=== PATIENT | female | born 1930 | race Caucasian/White ===

== ENCOUNTER 2018-11-16 06:07 | Inpatient (IN) ==
[2018-11-16 07:03] LABS: Basophils # (Auto) 0 K/mcL (0.0-0.3); Basophils % (Auto) 0.4 % (0.0-2.0); Eosinophils # (Auto) 0.1 K/mcL (0.0-0.7); Eosinophils % (Auto) 0.7 % (0.0-7.0); Granulocytes % (Auto) 68.4 % (38.0-78.0); Hematocrit 35.9 % (36.0-48.0); Hemoglobin 11.6 g/dL (12.0-15.0); Lymphocytes # (Auto) 1.6 K/mcL (1.5-4.8); Lymphocytes % (Auto) 18.3 % (15.5-49.0); Mean Cell Volume 93.9 fL (80.0-100.0); Mean Corpuscular HGB Conc 32.5 g/dL (31.0-36.0); Mean Platelet Volume 7.3 fL (7.4-10.4); Monocytes # (Auto) 1.1 K/mcL (0.1-0.9); Monocytes % (Auto) 12.2 % (1.0-12.0); Platelet Count 265 K/mcL (140-440); RBC 3.82 M/mcL (4.00-5.20); Red Cell Distribution Width 13.8 % (11.5-14.5)
[2018-11-16 07:22] LABS: Blood Urea Nitrogen 35 mg/dl (8-23); Calcium 9.2 mg/dl (8.6-10.4); Carbon Dioxide 27 mmol/L (22-30); Chloride 99 mmol/L (96-108); Glomerular Filtration Rate 37; Glucose 105 mg/dL (70-105); Sodium 137 mmol/L (133-145)
[2018-11-16] MEDS ORDERED: ceFAZolin 2 GM in DEXTROSE 5% IN WATER 50 ML IV SCH (08:00)
[2018-11-16] MEDS ORDERED: MIDAZOLAM 5 MG/5 ML VIAL IV ONE (09:10)
[2018-11-16] MEDS ORDERED: ONDANSETRON 4 MG/2 ML VIAL IV ONE (09:10)
[2018-11-16] MEDS ORDERED: LIDOCAINE HCL/PF 100 MG/5 ML SYRINGE IV ONE (09:10)
[2018-11-16] MEDS ORDERED: DEXAMETHASONE 10 MG/ML VIAL IV ONE (09:10)
[2018-11-16] MEDS ORDERED: PROPOFOL 200 MG/20 ML VIAL IV ONE (09:10)
[2018-11-16 09:43] LABS: Appearance,Urine CLEAR; Bacteria,Urine FEW /hpf (0); Bilirubin,Urine NEG (NEG); Color,Urine YELLOW; Culture Indicated,Urine YES; Glucose,Urine (UA) NEGATIVE (NEG); Ketones,Urine NEG (NEG); Leukocyte Esterase,Urine 25 /uL (NEG); Nitrate,Urine NEG (NEG); Protein,Urine NEG (NEG); Specific Gravity,Urine 1.013 (1.000-1.035); Urine Blood 0.2 mg/dL (<0.03); Urine Granular Cast 1 /lpf (0); Urine RBC 1 /hpf (0-1); Urine Squamous Epithelial Cell 2 /hpf (0-4); Urine Transitional Epi Cells 2 /hpf (0-2); Urine WBC 1 /hpf (0-4)
[2018-11-16] MEDS ORDERED: IPRATROPIUM/ALBUTEROL 3 ML AMPUL.NEB NEB PRN (09:51)
[2018-11-16] MEDS ORDERED: FLUMAZENIL 0.1 MG/ML ML IV PRN (09:51)
[2018-11-16] MEDS ORDERED: LACTATED RINGERS 250 ML IV PRN (09:51)
[2018-11-16] MEDS ORDERED: MEPERIDINE 25 MG/ML SYRINGE IV PRN (09:51)
[2018-11-16] MEDS ORDERED: ONDANSETRON 4 MG/2 ML VIAL IV PRN ×2 (09:51→10:04)
[2018-11-16] MEDS ORDERED: BENZOCAINE/MENTHOL 1 LOZENGE PO PRN ×2 (09:51→10:04)
[2018-11-16] MEDS ORDERED: PROMETHAZINE 25 MG/ML VIAL IV PRN (09:51)
[2018-11-16] MEDS ORDERED: diphenhydrAMINE 50 MG/ML VIAL IV PRN (09:51)
[2018-11-16] MEDS ORDERED: NALOXONE HCL 0.4 MG/ML VIAL IV PRN (09:51)
[2018-11-16] MEDS ORDERED: LACTATED RINGERS 1,000 ML IV SCH (10:00)
[2018-11-16] MEDS ORDERED: BISACODYL 10 MG SUPP.RECT PR PRN (10:04)
[2018-11-16] MEDS ORDERED: POLYETHYLENE GLYCOL 3350 17 GM PACKET PO PRN (10:04)
[2018-11-16] MEDS ORDERED: TRANEXAMIC ACID 1,000 MG/10 ML VIAL IV ONE (10:04)
[2018-11-16] MEDS ORDERED: TEMAZEPAM 15 MG CAPSULE PO PRN ×2 (10:04→10:07)
[2018-11-16] MEDS ORDERED: MAGNESIUM HYDROXIDE 30 ML ORAL.SUSP PO PRN (10:04)
[2018-11-16] MEDS ORDERED: HYDROmorphone 2 MG/ML VIAL IV PRN (10:04)
[2018-11-16] MEDS ORDERED: FLEETS ADULT ENEMA PR PRN (10:04)
[2018-11-16] MEDS ORDERED: ACETAMINOPHEN 325 MG TABLET PO PRN (10:04)
--- NOTE | 2018-11-16 10:04 | Brief Operative Note ---
Date of procedure: 11/16/18 Pre-op diagnosis: Right femur fracture Post-op diagnosis: same Procedure: Right femur fracture orif with IM nailing Grafts/Implants: Yes Anesthesia: GETA Complications: none Surgeon: Albino Sutherland Administration Intern: Rickie Pop Estimated blood loss (cc): 150 Specimens Removed/Pathology: none sent Condition: stable Disposition: PACU
[2018-11-16] MEDS ORDERED: PROPYLENE GLYCOL OU PRN (10:07)
[2018-11-16] MEDS: fentaNYL 100 MCG/2 ML VIAL IV PRN ×4 (10:22→10:28)
--- NOTE | 2018-11-16 11:01 | Operative Note ---
DATE OF OPERATION: 11/16/2018 PREOPERATIVE DIAGNOSIS: Right femur fracture, midshaft, incomplete. POSTOPERATIVE DIAGNOSIS: Right femur fracture, midshaft, incomplete. PROCEDURE: Right midshaft femur fracture IM nailing with a Gamma nail. SURGEON: Albino Sutherland M.D. DRIVER SERVICE TECHNICIAN: Rickie Pop PA-C. The PA's assistance was required for the safe and efficient completion of the entire case. This provider's expertise and technical skill were required throughout the case. The PA assisted with preoperative coordination, intraoperative retraction, wound closure, dressing and splint application, as well as postoperative documentation and care coordination. ANESTHESIA: General LMA anesthesia. COMPLICATIONS: None. DESCRIPTION OF PROCEDURE: The patient was brought to the operating room and put to sleep with general LMA anesthesia. Once asleep, the patient had the right leg sterilely prepped and draped in the usual sterile fashion and placed on the [place] table. We then took images, confirmed the position of the fracture, and then made an incision after the time out confirmed the right operative site. Tranexamic acid and preoperative antibiotics had been given. We made an incision posteriorly on the greater trochanter. We placed a central pin and then reamed up proximally. We placed a Gamma nail after reaming up for the size 13. A 10 mm long stem, 36 cm in length we locked proximally with a Gamma nail with an 85 mm intertrochanteric dynamic compression screw which was locked into place. We then distally locked two screws which measured 45 and 50. This gave excellent fixation. The patient tolerated this well without complication. We then closed the wound with 2-0 Vicryl and yevgeniy. Sterile bandage was applied. Images were saved. RBH:maurisio Job ID: [id number] Doc ID: [id number] Albino Sutherland MD
--- NOTE | 2018-11-16 11:34 | XRay Report ---
CLINICAL INFORMATION: Postop intramedullary nailing right femur COMPARISON: Preoperative films and additional history unavailable FINDINGS: A long gamma nail extends through the intramedullary portion of the entire femoral diaphysis and is supported by two screws in the metadiaphyseal region. There is a transverse incomplete unified fracture through the lateral cortex of the mid femoral diaphysis possibly a stress fracture. No other osseous abnormalities. Moderate degenerative change seen in the right hip, patellofemoral and tibiofemoral joints with chondrocalcinosis in the hip and menisci of the tibiofemoral joint IMPRESSION: Long gamma nail transfixing an apparent nondisplaced healing stress fracture through the lateral cortex of the mid femoral diaphysis. All relations are anatomic Moderate degenerative change right hip, patellofemoral and tibiofemoral joints with chondrocalcinosis in the menisci and the femoral head cartilage. Interpreted and Authenticated by: Ravi Hebert 11/16/18
[2018-11-16] MEDS: 0.45 % SODIUM CHLORIDE 1,000 ML IV SCH (14:31)
[2018-11-16] MEDS: HYDROCODONE/APAP 7.5/325MG TABLET PO PRN ×2 (14:32→22:00)
[2018-11-16] MEDS: VITAMIN D3 1,000 UNIT TABLET PO SCH (14:33)
[2018-11-16] MEDS: 0.9 % SODIUM CHLORIDE 10 ML SYRINGE IV SCH (14:33)
[2018-11-16] MEDS: CALCIUM (OYSTER SHELL) 500 MG TABLET PO SCH ×3 (14:33→22:02)
[2018-11-16] MEDS: ceFAZolin 1 GM VIAL IV SCH (18:08)
[2018-11-16] MEDS: SOTALOL 80 MG TABLET PO SCH (18:09)
[2018-11-16] MEDS: LOSARTAN 50 MG TABLET PO SCH (18:09)
[2018-11-16] MEDS: buPROPion 75 MG TABLET PO SCH (18:42)
[2018-11-16] MEDS: FLUTICASONE PROPIONATE SPRAY.NAS NS SCH (21:00)
[2018-11-16] MEDS: DOCUSATE SODIUM 100 MG CAPSULE PO SCH (22:01)
[2018-11-16] MEDS: FAMOTIDINE 20 MG TABLET PO SCH (22:02)
[2018-11-16] MEDS: SENNOSIDES 1 TABLET PO SCH (22:02)
[2018-11-16] MEDS: ASPIRIN 325 MG ENTERIC COATED TABLET PO SCH (22:03)
[2018-11-17] MEDS: 0.9 % SODIUM CHLORIDE 10 ML SYRINGE IV SCH ×4 (00:42→21:38)
[2018-11-17] MEDS: ceFAZolin 1 GM VIAL IV SCH (00:44)
[2018-11-17] MEDS: 0.45 % SODIUM CHLORIDE 1,000 ML IV SCH ×2 (01:12→06:49)
[2018-11-17] MEDS: FUROSEMIDE 20 MG TABLET PO SCH (06:04)
[2018-11-17] MEDS: SOTALOL 80 MG TABLET PO SCH ×2 (06:04→18:18)
[2018-11-17] MEDS: LOSARTAN 50 MG TABLET PO SCH ×2 (06:05→18:18)
[2018-11-17] MEDS: HYDROCODONE/APAP 7.5/325MG TABLET PO PRN ×3 (06:40→18:19)
[2018-11-17] MEDS: buPROPion 75 MG TABLET PO SCH ×2 (07:12→18:18)
--- NOTE | 2018-11-17 07:45 | Orthopedic Progress Note ---
Subjective Patient information: Note initiated : 11/17/18 at 7:44 am Service Date, if different from initiated Date: [] Patient: Rosie Almonte 88 y/o F admitted on 11/16/18 for Intramedullary Nailing of Right Femur. Chief Complaint: [Pt is stable this morning on post operative day 1 without any significant concerns or complaints. Patients vital signs have remained stable. Patients dressing is dry and is grossly intact from a neurovascular and motor standpoint. Patients 10 point ROS is otherwise negative. ] Objective Vital signs: Vital Signs Temp Pulse Pulse Resp BP Pulse Ox 11/17/18 04:00 97.7 F 80 96 H 18 110/70 96 11/17/18 00:38 98.5 F 78 20 86/53 96 11/16/18 19:27 99.0 F 70 22 94/57 93 11/16/18 18:00 96 11/16/18 16:00 98.8 F 78 18 94/58 97 11/16/18 14:05 98.5 F 75 18 96/55 92 11/16/18 14:00 95 11/16/18 13:05 72 18 102/60 90 11/16/18 12:35 70 16 108/68 90 11/16/18 12:05 98 11/16/18 11:55 70 16 116/69 94 11/16/18 11:40 71 16 118/73 96 11/16/18 11:25 70 16 114/71 95 11/16/18 11:10 97.4 F 70 16 120/74 98 11/16/18 10:45 97.3 F 74 15 119/62 98 11/16/18 10:35 97.3 F 74 15 129/89 100 11/16/18 10:20 98.2 F 78 11 L 130/91 100 11/16/18 10:15 79 14 138/70 100 11/16/18 10:10 98.4 F 78 11 L 137/70 98 11/16/18 10:05 97 Intake and Output 11/16/18 11/17/18 11/17/18 21:59 05:59 13:59 Intake Total 1060 1450 Output Total 200 700 Balance 860 750 Intake: IV 1050 Sodium Chloride 0.45% 1,000 ml 1000 @ 100 mls/hr IV .Q10H [facility] Rx#: [id number] Oral 1060 400 Output: Void Amount 200 700 Other: Meal Dinner Percent of Meal Consumed 100% Feeding Ability Independent Urine Appearance Clear Urine Color Pale Urine Odor Normal Stool Size Moderate Stool Color Brown Stool Consistency Formed # Voids 1 # Bowel Movements 1 Weight 118 lb Intake & Output: Intake & Output 11/16/18 11/17/18 11/17/18 21:59 05:59 13:59 Intake Total 1060 1450 Output Total 200 700 Balance 860 750 Weight 118 lb Intake: IV 1050 Sodium Chloride 0.45% 1,000 ml 1000 @ 100 mls/hr IV .Q10H [facility] Rx#: [id number] Oral 1060 400 Output: Void Amount 200 700 Other: Meal Dinner Percent of Meal Consumed 100% Feeding Ability Independent Urine Appearance Clear Urine Color Pale Urine Odor Normal Stool Size Moderate Stool Color Brown Stool Consistency Formed # Voids 1 # Bowel Movements 1 Incision: Yes healing Incision clean and dry: Yes Dressing: Yes clean Weight bearing status: full Neurological exam IM: Yes motor sensory intact, Yes neurovascular intact Extremities exam IM: Yes Foot pink and warm, Yes neurovascular intact - Labs CBC & BMP: 11/17/18 04:20 11/16/18 06:28 Labs: Orthopedic Labs 11/16/18 06:28 PT 13.0 INR 1.0 APTT 37 11/17/18 11/16/18 04:20 06:28 Hgb 11.6 L Hct 30.2 L 35.9 L Assessment and Plan (1) Hx of fracture of right hip The patient has been educated regarding dressing care, Physical Therapy recommendations, home exercises, restrictions, and follow up appointments. The patient has had all necessary DME prescribed. The patient has remained relatively stable during their hospital course. Status: Acute
--- NOTE | 2018-11-17 07:48 | Discharge Summary ---
Ortho Discharge - [facility] - Patient Instructions Diet: Regular Diet Activity: activity as tolerated, weight bearing as tolerated Total Hip Protocol: Follow activity instructions as provided by Physical Therapy. Dressing Care: May shower in 3 days, Aquacel Ag - leave on for 5 days - Problem Maintenance (1) Hx of fracture of right hip Status: Acute - Follow Up Plan Follow Up Appointments: Albino Sutherland MD [Physician] - 12/01/18 10:10 am Disposition: Home, Self-Care Prognosis: Good Rehab Potential: Good I certify that the patient requires SNF services: No Overall status at discharge: patient is progressing back to baseline - Orders For Discharge Prescriptions: Aspirin [Ecotrin] 325 mg PO BID #60 tab.ec Docusate Sodium [Colace] 100 mg PO BID #60 cap Hydrocodone/APAP 7.5/325Mg [[place] 7.5-325Mg] 1 - 2 tab PO Q4HP PRN #75 tab PRN Reason: Pain Level 3-6
[2018-11-17] MEDS ORDERED: fentaNYL 25 MCG PATCH TOPICAL ONE (09:00)
[2018-11-17] MEDS ORDERED: IBANDRONATE SODIUM 150 MG PO SCH (09:00)
[2018-11-17] MEDS: CALCIUM (OYSTER SHELL) 500 MG TABLET PO SCH ×4 (09:14→21:36)
[2018-11-17] MEDS: MULTIVIT,THER IRON,CA,FA & MIN 1 TABLET PO SCH (09:14)
[2018-11-17] MEDS: MAGNESIUM OXIDE 400 MG TABLET PO SCH (09:14)
[2018-11-17] MEDS: ASPIRIN 325 MG ENTERIC COATED TABLET PO SCH ×2 (09:14→21:36)
[2018-11-17] MEDS: DOCUSATE SODIUM 100 MG CAPSULE PO SCH ×2 (09:14→21:36)
[2018-11-17] MEDS: FLUTICASONE PROPIONATE SPRAY.NAS NS SCH ×2 (09:15→21:40)
[2018-11-17] MEDS ORDERED: CIPROFLOXACIN 500 MG TABLET PO SCH (15:06)
[2018-11-17] MEDS ORDERED: SULFAMETHOXAZOLE/TRIMETHOPRIM 1 TABLET PO SCH (15:29)
[2018-11-17] MEDS: SULFAMETHOXAZOLE/TRIMETHOPRIM 1 TABLET PO SCH (16:01)
[2018-11-17] MEDS: SENNOSIDES 1 TABLET PO SCH (21:36)
[2018-11-17] MEDS: FAMOTIDINE 20 MG TABLET PO SCH (21:36)
[2018-11-18] MEDS: SULFAMETHOXAZOLE/TRIMETHOPRIM 1 TABLET PO SCH ×2 (00:32→09:11)
[2018-11-18] MEDS: HYDROCODONE/APAP 7.5/325MG TABLET PO PRN ×2 (01:40→11:07)
[2018-11-18] MEDS: FUROSEMIDE 20 MG TABLET PO SCH (06:10)
[2018-11-18] MEDS: LOSARTAN 50 MG TABLET PO SCH (06:10)
[2018-11-18] MEDS: 0.9 % SODIUM CHLORIDE 10 ML SYRINGE IV SCH (06:11)
[2018-11-18] MEDS: SOTALOL 80 MG TABLET PO SCH (06:11)
[2018-11-18] MEDS: buPROPion 75 MG TABLET PO SCH (07:49)
[2018-11-18] MEDS: MULTIVIT,THER IRON,CA,FA & MIN 1 TABLET PO SCH (09:11)
[2018-11-18] MEDS: DOCUSATE SODIUM 100 MG CAPSULE PO SCH (09:12)
[2018-11-18] MEDS: MAGNESIUM OXIDE 400 MG TABLET PO SCH (09:12)
[2018-11-18] MEDS: ASPIRIN 325 MG ENTERIC COATED TABLET PO SCH (09:13)
[2018-11-18] MEDS: CALCIUM (OYSTER SHELL) 500 MG TABLET PO SCH (09:13)
[2018-11-18] MEDS: FLUTICASONE PROPIONATE SPRAY.NAS NS SCH (09:15)
[2018-11-18] MEDS: VITAMIN D3 1,000 UNIT TABLET PO SCH (11:07)
[2018-11-18 12:31] LABS: INR 0.9 (0.9-1.1); Prothrombin Time 12.3 sec (11.9-14.5)
[2018-11-18] MEDS ORDERED: WARFARIN 5 MG TABLET PO SCH (14:00)
== END 2018-11-18 12:43 | disposition home or self-care (01) | DRG 482 ==
LOC: SUR 06:07 → MEDSUR 06:08 → EDSTATUS 09:30
PROVIDERS: ADMIT Orthopaedic Surgery; ATTEND Orthopaedic Surgery